=== PATIENT | male | born 1975 | race Caucasian/White ===

== ENCOUNTER 2023-12-24 18:08 | Inpatient (IN) | payer OTHER ==
[2023-12-24 18:36] VITALS: BMI 25.4
[2023-12-24] MEDS ORDERED: IBUPROFEN 600 MG TABLET (FP) PO PRN (19:11)
[2023-12-24] MEDS ORDERED: NALOXONE HCL 0.4 MG/ML VIAL IM PRN (19:11)
[2023-12-24] MEDS ORDERED: POLYETHYLENE GLYCOL (HEALTHYLAX) 3350 17 GM PACKET PO PRN (19:11)
[2023-12-24] MEDS ORDERED: BISMUTH SUBSALICYLATE 524 MG/30 ML PO PRN (19:11)
[2023-12-24] MEDS ORDERED: MAG HYDROX/AL HYDROX/SIMETH 30 ML UNIT-DOSE CUP PO PRN (19:11)
[2023-12-24] MEDS ORDERED: NALOXONE (NARCAN) HCL 4 MG/0.1 ML SPRAY NS PRN (19:11)
[2023-12-24] MEDS ORDERED: ONDANSETRON *ODT* 4 MG TABLET SL PRN (19:11)
[2023-12-24] MEDS ORDERED: MAGNESIUM HYDROX 2400MG/30ML ORAL SUSPENSION 30 ML CUP PO PRN (19:11)
[2023-12-24] MEDS ORDERED: BENZONATATE 200 MG CAPSULE PO PRN (19:11)
[2023-12-24] MEDS ORDERED: DICYCLOMINE HCL 10 MG CAPSULE PO PRN (19:11)
[2023-12-24] MEDS ORDERED: BENZOCAINE/MENTHOL (CHLORASEPTIC ) LOZENGE MM PRN (19:11)
[2023-12-24] MEDS ORDERED: ACETAMINOPHEN 325 MG TABLET (FP) PO PRN (19:11)
[2023-12-24] MEDS ORDERED: guaiFENesin 600 MG TABLET.ER (FP) PO PRN (19:11)
[2023-12-24] MEDS ORDERED: LOPERAMIDE HCL 2 MG CAPSULE PO PRN (19:11)
[2023-12-24] MEDS ORDERED: IBUPROFEN 400 MG TABLET (FP) PO PRN (19:11)
[2023-12-24] MEDS: METHOCARBAMOL 500 MG TABLET PO PRN (22:54)
[2023-12-24] MEDS: hydrOXYzine PAMOATE 25 MG CAPSULE (FP) PO PRN (22:54)
[2023-12-24] MEDS: THIAMINE 100 MG TABLET PO SCH (22:54)
[2023-12-25] MEDS: PRENATAL VITAMINS W/ FOLIC ACID TABLET (FP) PO SCH (10:34)
[2023-12-25 11:57] LABS: MCH 31.2 pg (25.7-33.7); MCHC 33.4 g/dl (32.0-35.9); MEAN CELL VOLUME 93.3 fl (80-96); MEAN PLT VOLUME 8.3 fl (7.5-11.1); PLATELET COUNT 228 10^3/uL (134-434); RDW 14.9 % (11.9-15.9); WHITE BLOOD COUNT 7.3 K/mm3 (4.0-10.0)
[2023-12-25 11:58] LABS: CHLORIDE 106 mmol/L (98-107); POTASSIUM 4.3 mmol/L (3.5-5.1); SODIUM 139 mmol/L (136-145)
[2023-12-25 12:01] LABS: ALBUMIN 3.4 g/dl (3.4-5.0); ANION GAP 4 mmol/L (4-13); BLOOD UREA NITROGEN 17.4 mg/dL (7-18); CO2 29 mmol/L (21-32); GLUCOSE,RANDOM 94 mg/dL (74-106)
[2023-12-25 12:04] LABS: CREATININE 1.1 mg/dL (0.55-1.3); SGOT/AST 10 U/L (15-37); SGPT/ALT 22 U/L (13-61)
[2023-12-25 12:05] LABS: BILIRUBIN,TOTAL 0.6 mg/dL (0.2-1)
[2023-12-25 12:07] LABS: ALK PHOS 57 U/L (45-117)
[2023-12-25] MEDS: hydrOXYzine PAMOATE 50 MG CAPSULE (FP) PO PRN (12:26)
[2023-12-25 12:31] LABS: TOT PROT 6.1 g/dl (6.4-8.2)
[2023-12-25] MEDS: MELATONIN 5 MG TABLETS PO PRN (22:09)
[2023-12-26 06:20] VITALS: RESP 18
[2023-12-26 09:44] VITALS: BP 133/87; PULSE 81; TEMP 97.8
== END 2023-12-26 12:16 | disposition other institution (70) | DRG 776 ==
LOC: YASAS 18:08 → Y3N 19:42
PROVIDERS: ADMIT Allergy & Immunology; ATTEND Surgery
PROC: HZ2ZZZZ Detoxification Services for Substance Abuse Treatment (ICD-10-PCS; principal; 2023-12-24)
DX: F13.230 Sedative, hypnotic or anxiolytic dependence with withdrawal, uncomplicated (principal); F12.20 Cannabis dependence, uncomplicated; F19.980 Other psychoactive substance use, unspecified with psychoactive substance-induced anxiety disorder; Z86.69 Personal history of other diseases of the nervous system and sense organs; Z56.0 Unemployment, unspecified
CPT/HCPCS: 36415; 80053; 80305; 80307; 85027; 86780; 87811; 93005; 93010

== ENCOUNTER 2023-12-26 12:21 | Inpatient (IN) | payer OTHER ==
[2023-12-26] MEDS ORDERED: MAG HYDROX/AL HYDROX/SIMETH 30 ML UNIT-DOSE CUP PO PRN (12:54)
[2023-12-26] MEDS ORDERED: BENZONATATE 200 MG CAPSULE PO PRN (12:54)
[2023-12-26] MEDS ORDERED: LOPERAMIDE HCL 2 MG CAPSULE PO PRN (12:54)
[2023-12-26] MEDS ORDERED: BENZOCAINE/MENTHOL (CHLORASEPTIC ) LOZENGE MM PRN (12:54)
[2023-12-26] MEDS ORDERED: NALOXONE (NARCAN) HCL 4 MG/0.1 ML SPRAY NS PRN (12:54)
[2023-12-26] MEDS ORDERED: NALOXONE HCL 0.4 MG/ML VIAL IVPUSH PRN (12:54)
[2023-12-26] MEDS ORDERED: guaiFENesin 600 MG TABLET.ER (FP) PO PRN (12:54)
[2023-12-26] MEDS ORDERED: POLYETHYLENE GLYCOL (HEALTHYLAX) 3350 17 GM PACKET PO PRN (12:54)
[2023-12-26] MEDS ORDERED: ACETAMINOPHEN 325 MG TABLET (FP) PO PRN (12:54)
[2023-12-26] MEDS ORDERED: AMMONIUM LACTATE 12% LOTION 225 GM BOTTLE TP PRN (12:57)
[2023-12-26] MEDS: MELATONIN 5 MG TABLETS PO SCH (21:37)
[2023-12-26] MEDS: THIAMINE 100 MG TABLET PO SCH (21:37)
[2023-12-26] MEDS: hydrOXYzine PAMOATE 25 MG CAPSULE (FP) PO PRN (21:38)
[2023-12-26] MEDS: METHOCARBAMOL 500 MG TABLET PO PRN (21:38)
[2023-12-26] MEDS ORDERED: MELATONIN 5 MG TABLETS PO SCH (22:00)
[2023-12-27] MEDS: LEVOTHYROXINE NA 25 MCG TABLET (FP) PO SCH (07:49)
[2023-12-27] MEDS: PRENATAL VITAMINS W/ FOLIC ACID TABLET (FP) PO SCH (10:28)
[2023-12-27 12:47] LABS: HIV INTERPRETATION NEGATIVE (NEGATIVE)
[2023-12-27] MEDS: GABAPENTIN 100 MG CAPSULE PO SCH (13:38)
[2023-12-27] MEDS: hydrOXYzine PAMOATE 50 MG CAPSULE (FP) PO PRN (21:24)
[2023-12-29] MEDS: SUVOREXANT 5 MG TABLET PO PRN (21:12)
[2023-12-30] MEDS: MAGNESIUM HYDROX 2400MG/30ML ORAL SUSPENSION 30 ML CUP PO PRN (07:20)
[2023-12-31] MEDS: IBUPROFEN 400 MG TABLET (FP) PO PRN (21:11)
[2024-01-01] MEDS: METHOCARBAMOL 500 MG TABLET PO PRN (21:33)
[2024-01-02] MEDS: IBUPROFEN 600 MG TABLET (FP) PO PRN (13:40)
[2024-01-02] MEDS: SUVOREXANT 5 MG TABLET PO PRN (21:37)
[2024-01-05] MEDS: MAGNESIUM HYDROX 2400MG/30ML ORAL SUSPENSION 30 ML CUP PO PRN (20:14)
[2024-01-05] MEDS: SUVOREXANT 5 MG TABLET PO PRN (21:08)
[2024-01-06] MEDS: SUVOREXANT 10 MG TABLET PO PRN (21:43)
[2024-01-08] MEDS: SUVOREXANT 10 MG TABLET PO PRN (21:29)
[2024-01-09 06:30] VITALS: BP 134/90; PULSE 77; RESP 17; TEMP 97.5
== END 2024-01-09 10:10 | disposition home or self-care (01) | DRG 772 ==
LOC: YASAS 12:21 → Y3W 12:23
PROVIDERS: ADMIT Allergy & Immunology; ATTEND Psychiatry & Neurology Pain Medicine
PROC: HZ42ZZZ Group Counseling for Substance Abuse Treatment, Cognitive-Behavioral (ICD-10-PCS; principal; 2023-12-26)
DX: F13.20 Sedative, hypnotic or anxiolytic dependence, uncomplicated (principal); F12.20 Cannabis dependence, uncomplicated; F43.10 Post-traumatic stress disorder, unspecified; F19.980 Other psychoactive substance use, unspecified with psychoactive substance-induced anxiety disorder; F90.9 Attention-deficit hyperactivity disorder, unspecified type; F41.9 Anxiety disorder, unspecified; E05.90 Thyrotoxicosis, unspecified without thyrotoxic crisis or storm; G47.00 Insomnia, unspecified; Z59.00 Homelessness unspecified
CPT/HCPCS: 36415; 86803; 87389